=== PATIENT | male | born 1965 | race African-American/Black ===

== ENCOUNTER 2017-11-12 15:27 | Emergency (ER) | payer OTHER ==
[2017-11-12] MEDS ORDERED: Albuterol Sulfate 2.5 mg/0.5 ml Neb ONE (15:33)
[2017-11-12] MEDS ORDERED: Magnesium Sulfate 2 GM/100 ML BAG ONE (15:33)
[2017-11-12] MEDS ORDERED: Albuterol Sulfate 2.5 mg/3 ml Neb ONE (15:33)
[2017-11-12 15:57] LABS: Hemoglobin 14.9 g/dL (14.0-18.0); Mean Corpuscular HGB CONC 34.6 g/dL (32.0-36.0); Mean Corpuscular Hemoglobin 32.1 pg (27.0-31.0); Mean Corpuscular Volume 92.7 fl (80.0-94.0); Mean Platelet Volume 9.3 fL (7.4-10.4); Platelet Count 149 thou/uL (130-400); RBC Distribution Width 12.1 % (11.5-14.5); Red Blood Cell (RBC) Count 4.65 mill/uL (4.70-6.10); White Blood Cell (WBC) Count 4.6 thou/uL (4.8-10.8)
[2017-11-12 16:04] LABS: Base Excess-Venous 0.1 mmol/L (-30.0-30.0); Bicarbonate (HCO3v) 24.4 mmol/L (1.0-85.0); CO2 Tension (PvCO2) 37.9 mmHg (41.0-51.0); Calcium, Ionized 1.03 mmol/L (1.12-1.32); Hemoglobin - Calc 16.7 g/dL (12.0-18.0); O2 Tension (PvO2) 87.2 mmHg (35.0-45.0); T. Carbon Dioxide 25.6 mmol/L (1.0-85.0); pH (Venous) 7.418 (7.35-7.45); vO2 Saturation-calc 96.9 % (0.0-100.0)
[2017-11-12 16:14] LABS: Band 6 % (5-11); Eosinophils 3 % (0-10); Lymphocytes 17 % (21-51); MDiff Complete? YES; Monocytes 6 % (0-10); Neutrophil 56 % (42-75); PLT Morphology Comment Appears Adequate; RBC Morphology Normal; Reactive Lymphocytes 11 % (0-10)
--- NOTE | 2017-11-12 16:14 | RAD ---
PORTABLE CHEST ONE VIEW: Date: 11-12-17 Time: 2:57 p.m. History: Respiratory distress, cough, shortness of breath. FINDINGS: The heart size is borderline. The lungs are expanded without focal areas of consolidation, pneumothor ax, lucas pulmonary edema or pleural effusions. IMPRESSION: No radiographic evidence of acute cardiopulmonary process. POS: OFF
[2017-11-12 16:18] LABS: Anion Gap 17 mmol/L (10-20); BUN (Urea Nitrogen) 20 mg/dL (8.4-25.7); Calc. Creatinine Clearance 0 mL/min (70-130); Calcium 9.4 mg/dL (7.8-10.44); Carbon Dioxide 22 mmol/L (22-29); Chloride 106 mmol/L (98-107); Estimated GFR-MDRD 57; Glucose 110 mg/dL (70-105); Potassium 3.9 mmol/L (3.5-5.1); Sodium 141 mmol/L (136-145)
== END 2017-11-12 18:16 | disposition home or self-care (01) ==
LOC: ERS 15:27
DX: J45.901 Unspecified asthma with (acute) exacerbation (principal); J44.9 Chronic obstructive pulmonary disease, unspecified; Z79.899 Other long term (current) drug therapy; Z79.82 Long term (current) use of aspirin
CPT/HCPCS: 36415; 71045; 80048; 82330; 82803; 85025; 93005; 94640; 94644; 94660; 96365; J3475; J7611; J7620